=== PATIENT | female | born 1995 | race Caucasian/White ===

== ENCOUNTER 2018-09-06 15:33 | Emergency (ER) | payer OTHER ==
[2018-09-06 16:07] VITALS: BP 121/65
[2018-09-06] MEDS ORDERED: predniSONE TAB* 20 MG PO ONE (16:33)
--- NOTE | 2018-09-06 16:39 | UC ---
Throat Pain/Nasal Rodríguez HPI - HPI Summary HPI Summary: The patient is a 23-year-old female with a severe sore throat. She has had a 2 day history of nasal congestion. He denies any fever or chills. He has had mono in the past. She has no nausea vomiting or diarrhea. No chest pain or shortness of breath. - History of Current Complaint Chief Complaint: UCRespiratory Stated Complaint: THROAT PAIN Time Seen by Provider: 09/06/18 16:18 Hx Obtained From: Patient Hx Last Menstrual Period: 08/12/18 Onset/Duration: Gradual Onset, Lasting Days Severity: Moderate Pain Intensity: 7 Pain Scale Used: 0-10 Numeric Cough: None - Allergies/Home Medications Allergies/Adverse Reactions: Allergies Allergy/AdvReac Type Severity Reaction Status Date / Time No Known Allergies Allergy Verified 04/14/18 09:38 Home Medications: Home Medications Dextromethorphn/Acetaminoph/Cp [Vicks Nyquil Cold & Flu N] 1 liq PO 09/06/18 [ History] Ethynodiol D-Ethinyl Estradiol [Kelnor ] 1 tab PO 09/06/18 [History] Pseudoephedrine HCl [Sudafed 12 Hour] 120 mg PO 09/06/18 [History] PMH/Surg Hx/FS Hx/Imm Hx Previously Healthy: Yes - Surgical History Surgical History: Yes Surgery Procedure, Year, and Place: WISDOM TEETH - Family History Known Family History: Positive: Diabetes, Other - breast CA Negative: Cardiac Disease, Hypertension - Social History Alcohol Use: Rare Substance Use Type: None Smoking Status (MU): Never Smoked Tobacco Review of Systems Constitutional: Negative Skin: Negative Eyes: Negative ENT: Sore Throat, Nasal Discharge Respiratory: Negative Cardiovascular: Negative Gastrointestinal: Negative Genitourinary: Negative Motor: Negative Neurovascular: Negative Musculoskeletal: Negative Neurological: Negative Psychological: Negative Is Patient Immunocompromised?: No All Other Systems Reviewed And Are Negative: Yes Physical Exam Triage Information Reviewed: Yes Appearance: Well-Appearing, No Pain Distress, Well-Nourished Vital Signs: Initial Vital Signs Temp 98.7 F 09/06/18 16:03 Pulse 69 09/06/18 16:03 Resp 18 09/06/18 16:03 BP 121/65 09/06/18 16:03 Pulse Ox 100 09/06/18 16:03 Eyes: Positive: Conjunctiva Clear ENT: Positive: Hearing grossly normal, Pharyngeal erythema, Nasal congestion, Nasal drainage, TMs normal, Tonsillar swelling - sl, Uvula midline. Negative: TM bulging, TM dull, TM red, Tonsillar exudate, Trismus, Muffled voice, Hoarse voice, Dental tenderness, Sinus tenderness Neck: Positive: Supple, Nontender, Enlarged Nodes @ - right ant and post >Left Respiratory: Positive: Lungs clear, Normal breath sounds, No respiratory distress, No accessory muscle use Cardiovascular: Positive: RRR, No Murmur, Pulses Normal Musculoskeletal: Positive: ROM Intact, No Edema Neurological: Positive: Alert, Muscle Tone Normal Psychological Exam: Normal Skin Exam: Normal Diagnostics - Laboratory Diagnostic Studies Completed/Ordered: strep (-) Throat Pain/Nasal Course/Dx - Differential Dx/Diagnosis Provider Diagnoses: acute pharyngitis Discharge - Sign-Out/Discharge Documenting (check all that apply): Patient Departure All imaging exams completed and their final reports reviewed: No Studies - Discharge Plan Condition: Stable Disposition: HOME Prescriptions: predniSONE [Prednisone 20 MG TAB] 60 mg PO DAILY #6 tab Patient Education Materials: Pharyngitis (ED) Referrals: Reginald Mchugh DO [Primary Care Provider] - If Needed Additional Instructions: rest fluids recheck for new or worsening symptoms recheck in 3-4 days if not better - Billing Disposition and Condition Condition: STABLE Disposition: Home
== END 2018-09-06 16:45 | disposition home or self-care (01) ==
LOC: UCEAST 15:33
DX: J02.9 Acute pharyngitis, unspecified (principal)
CPT/HCPCS: 87651; 99212; G0463; J7512